=== PATIENT | male | born 1970 ===

== ENCOUNTER 2022-03-25 08:00 | Day surgery (SDC) | payer OTHER ==
[2022-03-24 12:13] VITALS: BMI 20.8
[2022-03-25] MEDS ORDERED: SUGAMMADEX SODIUM 200 MG/2 ML VIAL ONE (10:47)
[2022-03-25] MEDS ORDERED: Lidocaine 1% MPF 2 ML VIAL ONE (11:45)
[2022-03-25] MEDS ORDERED: Naloxone HCl 0.4 mg/ml Vial ONE (11:45)
[2022-03-25] MEDS ORDERED: PROPOFOL 200 MG/20 ML VIAL ONE (11:45)
[2022-03-25] MEDS ORDERED: Rocuronium Bromide 10 MG/ML (10ML VIAL) ONE (11:45)
[2022-03-25] MEDS ORDERED: fentaNYL Citrate/PF 100 MCG/2 ML SYRINGE ONE (12:15)
[2022-03-25] MEDS ORDERED: Racepinephrine 2.25% 0.5 ML NEB ONE (12:34)
== END 2022-03-25 13:36 | disposition home or self-care (01) ==
LOC: SDC 08:00
PROVIDERS: ATTEND Otolaryngology Plastic Surgery within the Head & Neck
PROC: 0CBR8ZX Excision of Epiglottis, Via Natural or Artificial Opening Endoscopic, Diagnostic (ICD-10-PCS; principal; 2022-03-25)
DX: C32.1 Malignant neoplasm of supraglottis (principal); F17.210 Nicotine dependence, cigarettes, uncomplicated; M79.0 Rheumatism, unspecified; M19.90 Unspecified osteoarthritis, unspecified site
CPT/HCPCS: 88305; 93005; 93010; J2310; J2704